=== PATIENT | female | born 2005 | race Caucasian/White ===

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

== ENCOUNTER 2024-01-12 20:41 | Emergency (ER) | payer BC ==
[2024-01-12 20:48] VITALS: RESP 18; BMI 30.7
[2024-01-12 22:08] LABS: BASO % 0.5 % (0-2.0); EOS % 0.2 % (0-4.5)
[2024-01-12 22:16] LABS: HEMATOCRIT 37.5 % (32.4-45.2); HEMOGLOBIN 12.7 GM/dL (10.7-15.3); LYMPH % 10.5 % (8-40); MCH 27.3 pg (25.7-33.7); MCHC 33.7 g/dl (32.0-36.0); MEAN PLT VOLUME 8.8 fl (7.5-11.1); MONO % 4.9 % (3.8-10.2); NEUT % 83.9 % (42.8-82.8); PLATELET COUNT 327 10^3/uL (134-434); RBC 4.64 M/mm3 (3.60-5.2)
[2024-01-12 22:32] LABS: POTASSIUM 3.9 mmol/L (3.5-5.1)
[2024-01-12 22:35] LABS: ALBUMIN 3.5 g/dl (3.4-5.0); BLOOD UREA NITROGEN 6.8 mg/dL (7-18); MAGNESIUM 1.4 mg/dL (1.8-2.4)
[2024-01-12 22:38] LABS: CREATININE 0.6 mg/dL (0.55-1.3)
[2024-01-12 22:40] LABS: BILIRUBIN,TOTAL 0.8 mg/dL (0.2-1); TOT PROT 7.1 g/dl (6.4-8.2)
[2024-01-12 23:34] LABS: POTASSIUM 3.7 mmol/L (3.5-5.1)
[2024-01-12 23:35] LABS: CALCIUM 9.3 mg/dL (8.5-10.1)
[2024-01-12 23:36] LABS: BLOOD UREA NITROGEN 6.1 mg/dL (7-18); MAGNESIUM 1.7 mg/dL (1.8-2.4)
[2024-01-12 23:39] LABS: CREATININE 0.6 mg/dL (0.55-1.3)
[2024-01-12 23:51] VITALS: BP 122/72; PULSE 102; TEMP 98.2
== END 2024-01-13 00:09 | disposition home or self-care (01) ==
LOC: JER 20:41
DX: R00.2 Palpitations (principal); R06.02 Shortness of breath; F41.9 Anxiety disorder, unspecified; T43.615A Adverse effect of caffeine, initial encounter
CPT/HCPCS: 36415; 71046-TC-FY; 80048; 80053; 83735; 84443; 84703; 85025; 93005; 93010; 99285-25